=== PATIENT | female | born 1970 | race Caucasian/White ===

== ENCOUNTER → 2020-08-05 13:23 | Outpatient (CLI) | payer OTHER, SELFPAY ==
[2020-08-05] MEDS: COVID-19 VACC, Ad26(JANSSEN)/PF 0.5 ML IM (13:29)
== END ==
PROVIDERS: Visit Provider Internal Medicine
DX: Z23 Encounter for immunization (principal)
CPT/HCPCS: 0031A; 91303

== ENCOUNTER → 2023-08-20 09:36 | Outpatient (CLI) | payer OTHER, SELFPAY ==
[2023-08-20 11:04] LABS: Add Manual Diff / Slide Review NO; Basophils Absolute Auto 0 /uL (0-100); Basophils Percent Auto 0.6 % (0-2); Eosinophils Absolute Auto 200 /uL (0-450); Eosinophils Percent Auto 3.8 % (2-4); Hematocrit 36.4 % (36-46); Hemoglobin 12.2 g/dL (12.0-16.0); Lymphocytes Absolute Auto 1600 /uL (1100-4500); Lymphocytes Percent Auto 38.4 % (25-40); Mean Corpuscular HGB Conc 33.7 % (30-36); Mean Corpuscular Hemoglobin 28.8 PG (26-34); Mean Corpuscular Volume 85.5 fL (80-100); Monocytes Absolute Auto 400 /uL (0-900); Monocytes Percent Auto 10.7 % (3-14); Neutrophils Absolute Auto 1900 /uL (1500-7000); Neutrophils Percent Auto 46.5 % (50-75); Platelet Count 207 X10^3/uL (150-400); Red Blood Cell Count 4.25 X10^6/uL (4.0-5.2); Red Cell Distribution Width 12.2 % (11.6-14.8); White Blood Cell Count 4.2 X10^3/uL (4.5-11.0)
[2023-08-20 11:47] LABS: Alanine Aminotransferase 22 IU/L (<35); Albumin 3.8 g/dL (3.5-5.0); Albumin Globulin Ratio 1.6 (1.0-2.8); Alkaline Phosphatase 57 U/L (38-126); Aspartate Aminotransferase 23 IU/L (14-36); BUN Creatinine Ratio 31.7 (6-22); Bilirubin Total 0.4 mg/dL (0.2-1.3); Blood Urea Nitrogen 13 mg/dL (7-17); Calcium 9.5 mg/dL (8.4-10.2); Carbon Dioxide 27 mmol/L (22-32); Chloride 107 mmol/L (98-107); Cholesterol 169 mg/dL (140-199); Estimated Glomerular Filt Rate > 60 mL/min (>60); Globulin 2.4 g/dL (1.7-4.1); Glucose 113 mg/dL (70-100); HDL Cholesterol 36 mg/dL (40-60); HEMOLYSIS < 15 (0-50); LDL Cholesterol Calculated 101 mg/dL (<100); Potassium 4.3 mmol/L (3.4-5.1); Sodium 139 mmol/L (137-145); Total Protein 6.2 g/dL (6.3-8.2); Triglycerides 160 mg/dL (35-150)
[2023-08-20 12:13] LABS: TSH w/ Reflex to FT4 < 0.02 uIU/mL (0.47-4.68)
[2023-08-20 13:10] LABS: Free T4, Direct Thyroxine 3.14 ng/dL (0.78-2.19)
[2023-08-23 07:36] LABS: Thyroid Peroxidase Antibodies 24 IU/mL (0-34)
== END ==
LOC: LAB 09:39
PROVIDERS: Family Medicine; PCP Student in an Organized Health Care Education/Training Program; Referring Provider Student in an Organized Health Care Education/Training Program; Visit Provider Student in an Organized Health Care Education/Training Program
DX: Z13.29 Encounter for screening for other suspected endocrine disorder (principal); Z13.220 Encounter for screening for lipoid disorders; Z13.0 Encounter for screening for diseases of the blood and blood-forming organs and certain disorders involving the immune mechanism; E66.9 Obesity, unspecified; Z79.899 Other long term (current) drug therapy; Z78.0 Asymptomatic menopausal state
CPT/HCPCS: 36415; 80053; 80061; 84439; 84443; 84481; 85025; 86376

== ENCOUNTER → 2023-09-06 07:33 | Outpatient (CLI) | payer OTHER, SELFPAY ==
--- NOTE | 2023-09-06 07:34 | DI.US.S_ITS ---
PROCEDURE: US THYROID INDICATIONS: new hyperthyroidism, assess for Graves dz TECHNIQUE: Real-time scanning was performed of the thyroid gland, with image documentation. COMPARISON: None. FINDINGS: Thyroid: Right lobe measures 4.1 x 1.6 x 1.6 cm. Left lobe measures 4 x 1.5 x 1.3 cm. Isthmus is 0.2 cm thick. Echotexture is heterogeneous. Vascularity may be somewhat prominent. No significant thyroid nodules. IMPRESSION: Heterogeneous thyroid gland. No significant thyroid nodules. Dictated by: Minesh Arvizu M.D. on 09/06/2023 at 12:40 Approved by: Minesh Arvizu M.D. on 09/06/2023 at 12:42
== END ==
PROVIDERS: PCP Student in an Organized Health Care Education/Training Program; Referring Provider Student in an Organized Health Care Education/Training Program; Visit Provider Student in an Organized Health Care Education/Training Program
DX: E05.90 Thyrotoxicosis, unspecified without thyrotoxic crisis or storm (principal)
CPT/HCPCS: 76536

== ENCOUNTER → 2023-11-16 11:32 | Outpatient (CLI) | payer OTHER, SELFPAY ==
[2023-11-16 15:53] LABS: TSH w/ Reflex to FT4 < 0.02 uIU/mL (0.47-4.68)
[2023-11-16 16:45] LABS: Free T4, Direct Thyroxine 3.04 ng/dL (0.78-2.19)
== END ==
PROVIDERS: PCP Student in an Organized Health Care Education/Training Program; Referring Provider Student in an Organized Health Care Education/Training Program; Visit Provider Student in an Organized Health Care Education/Training Program
DX: E05.90 Thyrotoxicosis, unspecified without thyrotoxic crisis or storm (principal)
CPT/HCPCS: 36415; 84439; 84443; 84481

== ENCOUNTER → 2024-02-15 11:44 | Outpatient (CLI) | payer OTHER, SELFPAY ==
[2024-02-15 12:49] LABS: Influenza A - CEPHEID Flu A NEGATIVE (NEGATIVE); Influenza B - CEPHEID Flu B NEGATIVE (NEGATIVE); Respiratory Syncytial Virus Negative (Negative)
[2024-02-15 13:15] LABS: COVID-19 CEPHEID 4-PLEX PCR Negative (Negative)
== END ==
PROVIDERS: PCP Student in an Organized Health Care Education/Training Program; Visit Provider Nurse Practitioner Family
DX: J02.9 Acute pharyngitis, unspecified (principal)
CPT/HCPCS: 0241U

== ENCOUNTER → 2024-06-10 09:02 | Outpatient (CLI) | payer OTHER, SELFPAY ==
[2024-06-10 10:47] LABS: Free T3, Triiodothyronine Free 4.57 pg/mL (2.77-5.27); Free T4, Direct Thyroxine 1.21 ng/dL (0.78-2.19)
[2024-06-10 11:00] LABS: Thyroid Stimulating Hormone 0.272 uIU/mL (0.47-4.68)
== END ==
PROVIDERS: PCP Student in an Organized Health Care Education/Training Program; Referring Provider Student in an Organized Health Care Education/Training Program; Visit Provider Student in an Organized Health Care Education/Training Program
DX: E05.90 Thyrotoxicosis, unspecified without thyrotoxic crisis or storm (principal)
CPT/HCPCS: 36415; 84439; 84443; 84481

== ENCOUNTER → 2024-09-10 12:20 | Outpatient (CLI) | payer OTHER, SELFPAY ==
--- NOTE | 2024-09-10 12:22 | DI.RAD.S_ITS ---
PROCEDURE: XR CHEST 2V INDICATIONS: fever, cough TECHNIQUE: 2 views of the chest were acquired. COMPARISON: None. FINDINGS: Heart, mediastinum and pulmonary vascular: Heart is normal in size and configuration. Mediastinum is unremarkable. Pulmonary vascular is normal. Lungs: Small patchy infiltrate in the posterior right lower lobe noted Pleural spaces: Normal-no effusions or pneumothorax. Bones and soft tissues: Normal IMPRESSION: Small patchy infiltrate posterior right lower lobe -likely pneumonia Dictated by: Sudhakar Álvarez M.D. on 09/11/2024 at 11:30 Approved by: Sudhakar Álvarez M.D. on 09/11/2024 at 11:30
== END ==
LOC: DI 12:22
PROVIDERS: Family Provider Student in an Organized Health Care Education/Training Program; PCP Student in an Organized Health Care Education/Training Program; Referring Provider Student in an Organized Health Care Education/Training Program; Visit Provider Student in an Organized Health Care Education/Training Program
DX: R05.1 Acute cough (principal); R50.9 Fever, unspecified
CPT/HCPCS: 71046

== ENCOUNTER → 2024-09-24 09:02 | Outpatient (CLI) | payer OTHER, SELFPAY ==
--- NOTE | 2024-09-24 09:07 | DI.RAD.S_ITS ---
PROCEDURE: XR CHEST 2V INDICATIONS: FU post pneumonia TECHNIQUE: 2 views of the chest were acquired. COMPARISON: [facility], CR, XR CHEST 2V, 09/10/2024, 12:31. FINDINGS: Decreased mild bilateral peribronchial thickening and patchy opacities, right greater than left, more than expected for expiratory result. Decreased bronchitis, bronchopneumonia, viral infection, or other process could be considered. No pneumothorax, no pleural effusion, no new areas of consolidation. Cardiopericardial silhouette and pulmonary vasculature within normal limits. IMPRESSION: Improving peribronchial thickening and patchy opacities as discussed above. If symptoms persist or worsen, CT chest could be performed. Dictated by: Larry Stacy M.D. on 09/24/2024 at 12:40 Approved by: Larry Stacy M.D. on 09/24/2024 at 12:50
== END ==
PROVIDERS: Family Provider Student in an Organized Health Care Education/Training Program; PCP Student in an Organized Health Care Education/Training Program; Referring Provider Student in an Organized Health Care Education/Training Program; Visit Provider Student in an Organized Health Care Education/Training Program
DX: J18.9 Pneumonia, unspecified organism (principal)
CPT/HCPCS: 71046

== ENCOUNTER 2024-10-02 08:15 | Outpatient (RCR) | payer OTHER, SELFPAY ==
--- NOTE | 2024-07-17 12:15 | PT.OPPOC ---
Physical, Occupational & Speech Therapy At [facility] Current Diagnoses Pain in right shoulder (07/17/24) Bicipital tendinitis, right shoulder (07/17/24) Visit Care Team Role Provider Type Greta Ibrahmi MD Attending Provider Physician Family Provider Primary Care Provider Referring Provider Specialty: Family Practice Obstetrics Address: [address] [place] [address], [facility] Email: [email or web address] Plan Of Care PT-OP-B Current Condition Start: 07/17/24 13:36 Freq: Status: Active Protocol: Document 07/17/24 11:40 DCW (Rec: 07/18/24 08:43 DCW [id number]) Current Condition History of Current Condition Onset Date Five month history Current Complaints Right anterior shoulder pain History of Current Condition Pt is a 53 year old female presenting with a five month history of right anterior shoulder pain. Pt reports that she was using her Instapot, and reached across the top, burned her hand with steam, and jerked her arm back quickly, which resulted in an immediate sharp pain in her right shoulder. Pain has been fairly consistent over the past few months, notes no limitations in her ROM, but struggles with doing activities like digging while gardening, or lifting a 50# bag of dog food. Notes she is unable to sleep on her right side, which is her typical sleeping position. Has not been able to go to the gym due to pain. Treatment Goals Patient/Caregiver Goals Return to preferred activities like gym and gardening without right shoulder pain PT-OP-T Assessment and Plan Start: 07/17/24 13:36 Freq: Status: Active Protocol: Document 07/17/24 11:40 DCW (Rec: 07/18/24 08:55 DCW [id number]) Physical Therapy Assessment Rehab Potential Rehabilitation Potential Good Evaluation Complexity Number of Personal Factors/Comorbidities 3 or More Number of Body Systems Impaired 4 or More Clinical Presentation at Evaluation Unstable Impairments Impairments Activity Tolerance,Functional Activities,Functional Mobility ,Pain,Soft Tissue Mobility, Tone Goals Three Impairment Pain disturbs pt's normal sleep pattern Power Line Lineman Goal (LTG) Pt to return to prior sleeping position of right side-lying without pain in order to improve sleep performance. LTG Duration 09/16/24 Two Impairment Pt unable to use shovel when gardening Power Line Lineman Goal (LTG) Pt to report ability to garden foe two hours or more without increased right shoulder pain in order to demonstrate return to prior functional levels LTG Duration 09/16/24 One Impairment Pt does not have an appropriate home exercise program Short Term Goal (STG) Pt to be independent and compliant with an appropriate HEP STG Duration 08/17/24 Assessment Summary Assessment Pt presents with signs and symptoms consistent with referring diagnosis. Pt location of pain and aggravating tests today suggestive of likely bicipital tendon involvement. Very point specific pain within bicipital groove. Additionally exhibits some increased tone and tenderness in right infraspinatus. Pt does not have any limitations in ROM currently. Will likely benefit from skilled therapeutic intervention focusing on decreasing pain and inflammation, strengthening the shoulder girdle, improving joint stability, and return to prior level of function. Physical Therapy Plan Frequency and Duration Frequency of Treatment 2x/Week Plan of Care Start Date 07/17/24 Plan of Care End Date 09/16/24 Therapeutic Interventions Therapeutic Interventions Home Exercise Program,Joint Mobilizations,Manual Therapy, Neuromuscular Re-education, Patient/Caregiver Education, Self-Care/Home Management,Soft Tissue Mobilization,Taping, Therapeutic Activities, Therapeutic Exercises Modalities Cold Pack/Ice Massage,Electric Stimulation,Hot Packs, Ultrasound Next Visit Focus/Plan Next Note Type Treatment Note Next Visit Plan Pain control, shoulder strengthening Plan of Care Dates Plan of Care Start Date 07/17/24 Plan of Care End Date 09/16/24 Electronically Signed by: Noah Adrian, PT 07/18/24 0855 If you are in agreement with this Plan of Care, please return a signed and dated copy. I have reviewed this Plan of Care and certify that the skilled therapy services above are required to meet the patient?s needs. Physician Signature Date Printed Name and Credentials Clinical Instructor Signature Printed Name and Credentials
--- NOTE | 2024-07-17 12:15 | PT.OIE ---
Current Diagnoses Pain in right shoulder (07/17/24) Bicipital tendinitis, right shoulder (07/17/24) Past Medical History (Last Reviewed 06/02/24 @ 13:35 by MAYITO Zuniga) ADHD Allergies Chicken pox (~1984) Gestational diabetes (~2009) Hearing loss Hyperthyroidism No significant medical problems Obesity (BMI 30.0-34.9) Prediabetes Vision disorder Past Surgical History (Last Reviewed 06/02/24 @ 13:35 by MAYITO Zuniga) Anesthesia History of section Visit Care Team Role Provider Type Greta Ibrahim MD Attending Provider Physician Family Provider Primary Care Provider Referring Provider Specialty: Family Practice Obstetrics Address: [address] [place] [address], [facility] Email: [email or web address] Physical Therapy Initial Evaluation PT-OP-A Visit Information Start: 07/17/24 13:36 Freq: Status: Active Protocol: Document 07/17/24 11:40 DCW (Rec: 07/17/24 13:43 DCW [id number]) Out-Patient Physical Therapy Visit Information Visit Information Visit Type Initial Evaluation Visit Start Time 11:40 Visit Stop Time 12:15 Visit Number 1 Number of PIN MAKER Visits 0 Evaluation Information Evaluation Date 07/17/24 PT-OP-B Current Condition Start: 07/17/24 13:36 Freq: Status: Active Protocol: Document 07/17/24 11:40 DCW (Rec: 07/18/24 08:43 DCW [id number]) Current Condition History of Current Condition Onset Date Five month history Current Complaints Right anterior shoulder pain History of Current Condition Pt is a 53 year old female presenting with a five month history of right anterior shoulder pain. Pt reports that she was using her Instapot, and reached across the top, burned her hand with steam, and jerked her arm back quickly, which resulted in an immediate sharp pain in her right shoulder. Pain has been fairly consistent over the past few months, notes no limitations in her ROM, but struggles with doing activities like digging while gardening, or lifting a 50# bag of dog food. Notes she is unable to sleep on her right side, which is her typical sleeping position. Has not been able to go to the gym due to pain. Treatment Goals Patient/Caregiver Goals Return to preferred activities like gym and gardening without right shoulder pain PT-OP-C Subjective Start: 07/17/24 13:36 Freq: Status: Active Protocol: Document 07/17/24 11:40 DCW (Rec: 07/17/24 13:43 DCW [id number]) OP-PT Subjective Patient Comments Patient Comments I somehow hurt my shoulder using an Instapot. It's ridiculous. Patient Reported Progress Same Patient Questionnaires Quick Dash- Upper Extremity Quick Dash UE Score 43.18% Quick Dash UE Impairment 40 to 59% Impaired (Score 40- 59) PT-OP-F Manual Assessment Start: 07/17/24 13:36 Freq: Status: Active Protocol: Document 07/17/24 11:40 DCW (Rec: 07/18/24 08:43 DCW [id number]) Manual Assessments Soft Tissue Assessment Soft Tissue Mobility Assessment Tenderness to palpation 3/4: wincing and withdraw along right bicipital groove. Tenderness to palpation 2/4: Pain with wincing at right infraspinatus muscle belly Joint Mobility Assessment Joint Mobility Assessment No limitations of joint or capsular mobility of right shoulder PT-OP-K Range of Motion Start: 07/17/24 13:36 Freq: Status: Active Protocol: Document 07/17/24 11:40 DCW (Rec: 07/18/24 08:43 DCW [id number]) Shoulder Goniometric Range of Motion Shoulder Right Active Shoulder ROM WFL Yes Testing Position Sitting Flexion 180 Abduction 180 External Rotation at 0 degrees Abduction 65 Internal Rotation Behind Back (text) T10 Left Active Shoulder ROM WFL Yes Testing Position Sitting Flexion 180 Abduction 180 External Rotation at 0 degrees Abduction 70 Internal Rotation Behind Back (text) T6 PT-OP-L Special Tests Start: 07/17/24 13:36 Freq: Status: Active Protocol: Document 07/17/24 11:40 DCW (Rec: 07/18/24 08:43 DCW [id number]) Special Tests Shoulder Special Tests Yergason's Biceps Test Results Strongly positive right Sulcus Test Results Negative Speed's Biceps Test Results Strongly positive right Passive ER Rotator Cuff Test Results Negative Painful Arc Test Results Negative Montelongo Josué Impingement Test Results Negative Grind Labrum Test Results Negative Drop Arm Rotator Cuff Test Results Negative Clunk Test Test Results Negative Belly Press Test Results Mild R pain Apprehension Test Test Results Negative AC Joint Compression Test Results Negative PT-OP-M Strength Start: 07/17/24 13:36 Freq: Status: Active Protocol: Document 07/17/24 11:40 DCW (Rec: 07/18/24 08:43 DCW [id number]) Shoulder Strength Shoulder Manual Muscle Testing Right Flexion 5 Normal Abduction (C5) 5 Normal Adduction 5 Normal External Rotation 5 Normal Internal Rotation 5 Normal Comments Pain with resisted ER Left Flexion 5 Normal Abduction (C5) 5 Normal Adduction 5 Normal External Rotation 5 Normal Internal Rotation 5 Normal PT-OP-Q Treatments Start: 07/17/24 13:36 Freq: Status: Active Protocol: Document 07/17/24 11:40 DCW (Rec: 07/17/24 13:43 DCW [id number]) Therapeutic Exercises Standing Exercises Shoulder Abduction Standing Exercise Name Shoulder Abduction Side bilateral Resistance Lv 2 Comments Pain-free ROM Shoulder Flexion Standing Exercise Name Shoulder Flexion Side bilateral Resistance Lv 2 Comments Pain-free ROM Rows Standing Exercise Name Rows Side bilateral Resistance Lv 2 External Rotation Standing Exercise Name Shoulder ER Side bilateral Resistance Lv 2 PT-OP-T Assessment and Plan Start: 07/17/24 13:36 Freq: Status: Active Protocol: Document 07/17/24 11:40 DCW (Rec: 07/18/24 08:55 DCW [id number]) Physical Therapy Assessment Rehab Potential Rehabilitation Potential Good Evaluation Complexity Number of Personal Factors/Comorbidities 3 or More Number of Body Systems Impaired 4 or More Clinical Presentation at Evaluation Unstable Impairments Impairments Activity Tolerance,Functional Activities,Functional Mobility ,Pain,Soft Tissue Mobility, Tone Goals Three Impairment Pain disturbs pt's normal sleep pattern Production Team Leader Goal (LTG) Pt to return to prior sleeping position of right side-lying without pain in order to improve sleep performance. LTG Duration 09/16/24 Two Impairment Pt unable to use shovel when gardening Alf Goal (LTG) Pt to report ability to garden foe two hours or more without increased right shoulder pain in order to demonstrate return to prior functional levels LTG Duration 09/16/24 One Impairment Pt does not have an appropriate home exercise program Short Term Goal (STG) Pt to be independent and compliant with an appropriate HEP STG Duration 08/17/24 Assessment Summary Assessment Pt presents with signs and symptoms consistent with referring diagnosis. Pt location of pain and aggravating tests today suggestive of likely bicipital tendon involvement. Very point specific pain within bicipital groove. Additionally exhibits some increased tone and tenderness in right infraspinatus. Pt does not have any limitations in ROM currently. Will likely benefit from skilled therapeutic intervention focusing on decreasing pain and inflammation, strengthening the shoulder girdle, improving joint stability, and return to prior level of function. Physical Therapy Plan Frequency and Duration Frequency of Treatment 2x/Week Plan of Care Start Date 07/17/24 Plan of Care End Date 09/16/24 Therapeutic Interventions Therapeutic Interventions Home Exercise Program,Joint Mobilizations,Manual Therapy, Neuromuscular Re-education, Patient/Caregiver Education, Self-Care/Home Management,Soft Tissue Mobilization,Taping, Therapeutic Activities, Therapeutic Exercises Modalities Cold Pack/Ice Massage,Electric Stimulation,Hot Packs, Ultrasound Next Visit Focus/Plan Next Note Type Treatment Note Next Visit Plan Pain control, shoulder strengthening
--- NOTE | 2024-07-22 09:43 | PT.OTN ---
Current Diagnoses Pain in right shoulder (07/22/24) Bicipital tendinitis, right shoulder (07/22/24) Physical Therapy Treatment Note PT-OP-A Visit Information Start: 07/17/24 13:36 Freq: Status: Active Protocol: Document 07/22/24 09:05 SP (Rec: 07/22/24 09:50 SP [id number]) Out-Patient Physical Therapy Visit Information Visit Information Visit Type Initial Evaluation Visit Start Time 09:05 Visit Stop Time 09:43 Visit Number 2 Number of GREASE REMOVER Visits 1 Evaluation Information Evaluation Date 07/17/24 PT-OP-B Current Condition Start: 07/17/24 13:36 Freq: Status: Active Protocol: Document 07/17/24 11:40 DCW (Rec: 07/18/24 08:43 DCW [id number]) Current Condition History of Current Condition Onset Date Five month history Current Complaints Right anterior shoulder pain History of Current Condition Pt is a 53 year old female presenting with a five month history of right anterior shoulder pain. Pt reports that she was using her Instapot, and reached across the top, burned her hand with steam, and jerked her arm back quickly, which resulted in an immediate sharp pain in her right shoulder. Pain has been fairly consistent over the past few months, notes no limitations in her ROM, but struggles with doing activities like digging while gardening, or lifting a 50# bag of dog food. Notes she is unable to sleep on her right side, which is her typical sleeping position. Has not been able to go to the gym due to pain. Treatment Goals Patient/Caregiver Goals Return to preferred activities like gym and gardening without right shoulder pain PT-OP-C Subjective Start: 07/17/24 13:36 Freq: Status: Active Protocol: Document 07/22/24 09:05 SP (Rec: 07/22/24 09:50 SP [id number]) OP-PT Subjective Patient Comments Patient Comments Pt reports was pretty sore after last tx, she found 2 days per week might be to much right now. Is compliant with HEP daily, resisted band is bothersome though but does her HEP. PT-OP-F Manual Assessment Start: 07/17/24 13:36 Freq: Status: Active Protocol: Document 07/17/24 11:40 DCW (Rec: 07/18/24 08:43 DCW [id number]) Manual Assessments Soft Tissue Assessment Soft Tissue Mobility Assessment Tenderness to palpation 3/4: wincing and withdraw along right bicipital groove. Tenderness to palpation 2/4: Pain with wincing at right infraspinatus muscle belly Joint Mobility Assessment Joint Mobility Assessment No limitations of joint or capsular mobility of right shoulder PT-OP-K Range of Motion Start: 07/17/24 13:36 Freq: Status: Active Protocol: Document 07/17/24 11:40 DCW (Rec: 07/18/24 08:43 DCW [id number]) Shoulder Goniometric Range of Motion Shoulder Right Active Shoulder ROM WFL Yes Testing Position Sitting Flexion 180 Abduction 180 External Rotation at 0 degrees Abduction 65 Internal Rotation Behind Back (text) T10 Left Active Shoulder ROM WFL Yes Testing Position Sitting Flexion 180 Abduction 180 External Rotation at 0 degrees Abduction 70 Internal Rotation Behind Back (text) T6 PT-OP-L Special Tests Start: 07/17/24 13:36 Freq: Status: Active Protocol: Document 07/17/24 11:40 DCW (Rec: 07/18/24 08:43 DCW [id number]) Special Tests Shoulder Special Tests Yergason's Biceps Test Results Strongly positive right Sulcus Test Results Negative Speed's Biceps Test Results Strongly positive right Passive ER Rotator Cuff Test Results Negative Painful Arc Test Results Negative Montelongo Josué Impingement Test Results Negative Grind Labrum Test Results Negative Drop Arm Rotator Cuff Test Results Negative Clunk Test Test Results Negative Belly Press Test Results Mild R pain Apprehension Test Test Results Negative AC Joint Compression Test Results Negative PT-OP-M Strength Start: 07/17/24 13:36 Freq: Status: Active Protocol: Document 07/17/24 11:40 DCW (Rec: 07/18/24 08:43 DCW [id number]) Shoulder Strength Shoulder Manual Muscle Testing Right Flexion 5 Normal Abduction (C5) 5 Normal Adduction 5 Normal External Rotation 5 Normal Internal Rotation 5 Normal Comments Pain with resisted ER Left Flexion 5 Normal Abduction (C5) 5 Normal Adduction 5 Normal External Rotation 5 Normal Internal Rotation 5 Normal PT-OP-Q Treatments Start: 07/17/24 13:36 Freq: Status: Active Protocol: Document 07/22/24 09:05 SP (Rec: 07/22/24 09:50 SP [id number]) Therapeutic Exercises Supine Exercises serratus press Supine Exercise Name added to HEP /c HO Side right Resistance AROM Reps/Minutes 2x5 reps Comments cues slow motion, scapular glide Sidelying Exercises ER Sidelying Exercise Name added toHEP with HO Side right Resistance AROM Reps/Minutes x8 reps Abduction Sidelying Exercise Name added to HEP with HO Side right Reps/Minutes x8 reps Comments to approx 100 deg pnfree range Standing Exercises Shoulder Abduction Standing Exercise Name Shoulder Abduction Side bilateral Resistance Lv 2> 1# DB Reps/Minutes 2x5 Comments modified using 1# DB less discomfort and better mechanics Shoulder Flexion Standing Exercise Name Shoulder Flexion Side bilateral Resistance Lv 2> 1# DB Reps/Minutes 2x5 Comments modified using 1# DB less discomfort and better mechanics Rows Standing Exercise Name Rows Side bilateral Resistance Lv 2 Reps/Minutes x10 Comments cued posture, scap retraction/ depression awareness range Manual Therapy Treatment Soft Tissue Mobilization L shoulder Body Location prox bicep, anterior deltoid, Prox pec, Mobilization Type Myofascial Release,Rolling Intensity/Depth Superficial Body Position Hooklying Comments gentle STMs Joint Mobilizations L shld Joint GH jt Direction posterior, inferior Grade II Body Position Hooklying Manual Techniques PROM L shld Type FF, ER/IR, protraction PT-OP-T Assessment and Plan Start: 07/17/24 13:36 Freq: Status: Active Protocol: Document 07/22/24 09:05 SP (Rec: 07/22/24 09:50 SP [id number]) Physical Therapy Assessment Goals Three Impairment Pain disturbs pt's normal sleep pattern Shelter Goal (LTG) Pt to return to prior sleeping position of right side-lying without pain in order to improve sleep performance. LTG Duration 09/16/24 Two Impairment Pt unable to use shovel when gardening Shelter Goal (LTG) Pt to report ability to garden foe two hours or more without increased right shoulder pain in order to demonstrate return to prior functional levels LTG Duration 09/16/24 One Impairment Pt does not have an appropriate home exercise program Short Term Goal (STG) Pt to be independent and compliant with an appropriate HEP STG Duration 08/17/24 Assessment Summary Assessment Pt sensitive to manual, adjusted pression over anterior R shld. She tolerated SL and supine cues for slow gentle painfree AROM. Modified resisted HEP to use 1 # db during FF and ABD standing due to noted 5/10 pain and guarding during tx today. Pt reports improved motion with less pain end tx, provided HOs for recall home. Pt declined Modaliity, uses CP home. Physical Therapy Plan Frequency and Duration Frequency of Treatment 2x/Week Plan of Care Start Date 07/17/24 Plan of Care End Date 09/16/24 Therapeutic Interventions Therapeutic Interventions Home Exercise Program,Joint Mobilizations,Manual Therapy, Neuromuscular Re-education, Patient/Caregiver Education, Self-Care/Home Management,Soft Tissue Mobilization,Taping, Therapeutic Activities, Therapeutic Exercises Modalities Cold Pack/Ice Massage,Electric Stimulation,Hot Packs, Ultrasound Next Visit Focus/Plan Next Note Type Treatment Note Next Visit Plan Recheck serratus press, SL ER & ABD then tolerance TB HEP standing. POC: Pain control, shoulder strengthening
--- NOTE | 2024-08-05 10:27 | PT.OTN ---
Current Diagnoses Pain in right shoulder (08/05/24) Bicipital tendinitis, right shoulder (08/05/24) Physical Therapy Treatment Note PT-OP-A Visit Information Start: 07/17/24 13:36 Freq: Status: Active Protocol: Document 08/05/24 09:45 DCW (Rec: 08/05/24 10:27 DCW [id number]) Out-Patient Physical Therapy Visit Information Visit Information Visit Type Treatment Note Visit Start Time 09:45 Visit Stop Time 10:30 Visit Number 3 Number of INDIVIDUAL PENSION ADVISER Visits 0 Evaluation Information Evaluation Date 07/17/24 PT-OP-B Current Condition Start: 07/17/24 13:36 Freq: Status: Active Protocol: Document 07/17/24 11:40 DCW (Rec: 07/18/24 08:43 DCW [id number]) Current Condition History of Current Condition Onset Date Five month history Current Complaints Right anterior shoulder pain History of Current Condition Pt is a 53 year old female presenting with a five month history of right anterior shoulder pain. Pt reports that she was using her Instapot, and reached across the top, burned her hand with steam, and jerked her arm back quickly, which resulted in an immediate sharp pain in her right shoulder. Pain has been fairly consistent over the past few months, notes no limitations in her ROM, but struggles with doing activities like digging while gardening, or lifting a 50# bag of dog food. Notes she is unable to sleep on her right side, which is her typical sleeping position. Has not been able to go to the gym due to pain. Treatment Goals Patient/Caregiver Goals Return to preferred activities like gym and gardening without right shoulder pain PT-OP-C Subjective Start: 07/17/24 13:36 Freq: Status: Active Protocol: Document 08/05/24 09:45 DCW (Rec: 08/05/24 10:27 DCW [id number]) OP-PT Subjective Patient Comments Patient Comments Pt admits her shoulder is a little sore. Admits it was feeling a little better, but then did a lot of gardening, and probably overdid it. PT-OP-F Manual Assessment Start: 07/17/24 13:36 Freq: Status: Active Protocol: Document 07/17/24 11:40 DCW (Rec: 07/18/24 08:43 DCW [id number]) Manual Assessments Soft Tissue Assessment Soft Tissue Mobility Assessment Tenderness to palpation 3/4: wincing and withdraw along right bicipital groove. Tenderness to palpation 2/4: Pain with wincing at right infraspinatus muscle belly Joint Mobility Assessment Joint Mobility Assessment No limitations of joint or capsular mobility of right shoulder PT-OP-K Range of Motion Start: 07/17/24 13:36 Freq: Status: Active Protocol: Document 07/17/24 11:40 DCW (Rec: 07/18/24 08:43 DCW [id number]) Shoulder Goniometric Range of Motion Shoulder Right Active Shoulder ROM WFL Yes Testing Position Sitting Flexion 180 Abduction 180 External Rotation at 0 degrees Abduction 65 Internal Rotation Behind Back (text) T10 Left Active Shoulder ROM WFL Yes Testing Position Sitting Flexion 180 Abduction 180 External Rotation at 0 degrees Abduction 70 Internal Rotation Behind Back (text) T6 PT-OP-L Special Tests Start: 07/17/24 13:36 Freq: Status: Active Protocol: Document 07/17/24 11:40 DCW (Rec: 07/18/24 08:43 DCW [id number]) Special Tests Shoulder Special Tests Yergason's Biceps Test Results Strongly positive right Sulcus Test Results Negative Speed's Biceps Test Results Strongly positive right Passive ER Rotator Cuff Test Results Negative Painful Arc Test Results Negative [place] Josué Impingement Test Results Negative Grind Labrum Test Results Negative Drop Arm Rotator Cuff Test Results Negative Clunk Test Test Results Negative Belly Press Test Results Mild R pain Apprehension Test Test Results Negative AC Joint Compression Test Results Negative PT-OP-M Strength Start: 07/17/24 13:36 Freq: Status: Active Protocol: Document 07/17/24 11:40 DCW (Rec: 07/18/24 08:43 DCW [id number]) Shoulder Strength Shoulder Manual Muscle Testing Right Flexion 5 Normal Abduction (C5) 5 Normal Adduction 5 Normal External Rotation 5 Normal Internal Rotation 5 Normal Comments Pain with resisted ER Left Flexion 5 Normal Abduction (C5) 5 Normal Adduction 5 Normal External Rotation 5 Normal Internal Rotation 5 Normal PT-OP-Q Treatments Start: 07/17/24 13:36 Freq: Status: Active Protocol: Document 08/05/24 09:45 DCW (Rec: 08/05/24 10:27 DCW [id number]) Cardio Equipment Upper Body Ergometer (UBE) Duration (Minutes) 5 RPM 60 Seat Position 10 Height 3 Therapeutic Exercises Standing Exercises Curls Standing Exercise Name Reverse Curls Side bilateral Resistance 2# Reps/Minutes 2x10 Shoulder Abduction Standing Exercise Name Shoulder Abduction Side bilateral Resistance Lv 4 Reps/Minutes 2x10 Comments Pain-free ROM Shoulder Flexion Standing Exercise Name Shoulder Flexion Side bilateral Resistance Lv 4 Reps/Minutes 2x10 Comments Pain-free ROM External Rotation Standing Exercise Name Shoulder ER Side bilateral Resistance Lv 4 Manual Therapy Treatment Soft Tissue Mobilization L shoulder Body Location prox bicep, anterior deltoid, Prox pec, supra/infraspinatus, teres minor Mobilization Type Myofascial Release,Rolling Intensity/Depth Superficial Body Position Hooklying Comments gentle STMs Joint Mobilizations L shld Joint GH jt Direction posterior, inferior Grade II Body Position Hooklying PT-OP-T Assessment and Plan Start: 07/17/24 13:36 Freq: Status: Active Protocol: Document 08/05/24 09:45 DCW (Rec: 08/05/24 10:27 DCW [id number]) Physical Therapy Assessment Impairments Impairments Activity Tolerance,Functional Activities,Functional Mobility ,Pain,Soft Tissue Mobility, Tone Goals Three Impairment Pain disturbs pt's normal sleep pattern Fdc Goal (LTG) Pt to return to prior sleeping position of right side-lying without pain in order to improve sleep performance. LTG Duration 09/16/24 Two Impairment Pt unable to use shovel when gardening Administrative Services Assistant Goal (LTG) Pt to report ability to garden foe two hours or more without increased right shoulder pain in order to demonstrate return to prior functional levels LTG Duration 09/16/24 One Impairment Pt does not have an appropriate home exercise program Short Term Goal (STG) Pt to be independent and compliant with an appropriate HEP STG Duration 08/17/24 Assessment Summary Assessment Pt tolerating STM much better today, admitted her shoulder felt much better following manual therapy last visit. Adjusted HEP, pt not comfortable with supine or side-lying exercise, preferred to return to standing HEP with T-band. Physical Therapy Plan Frequency and Duration Frequency of Treatment 2x/Week Plan of Care Start Date 07/17/24 Plan of Care End Date 09/16/24 Therapeutic Interventions Therapeutic Interventions Home Exercise Program,Joint Mobilizations,Manual Therapy, Neuromuscular Re-education, Patient/Caregiver Education, Self-Care/Home Management,Soft Tissue Mobilization,Taping, Therapeutic Activities, Therapeutic Exercises Modalities Cold Pack/Ice Massage,Electric Stimulation,Hot Packs, Ultrasound Next Visit Focus/Plan Next Note Type Treatment Note Next Visit Plan Recheck serratus press, SL ER & ABD then tolerance TB HEP standing. POC: Pain control, shoulder strengthening
--- NOTE | 2024-08-12 10:35 | PT.OTN ---
Current Diagnoses Pain in right shoulder (08/12/24) Bicipital tendinitis, right shoulder (08/12/24) Physical Therapy Treatment Note PT-OP-A Visit Information Start: 07/17/24 13:36 Freq: Status: Active Protocol: Document 08/12/24 09:52 SP (Rec: 08/12/24 10:46 SP Laptop) Out-Patient Physical Therapy Visit Information Visit Information Visit Type Treatment Note Visit Note CRUZ Mosocso assisted with most ther ex instruction to pt throughout tx while under direction supervision and instruction needed by PHILOMENA Goins with permission of pt. Visit Start Time 09:52 Visit Stop Time 10:35 Visit Number 4 Number of PRINCIPAL BIOINFORMATICS SPECIALIST Visits 1 PT-OP-B Current Condition Start: 07/17/24 13:36 Freq: Status: Active Protocol: Document 07/17/24 11:40 DCW (Rec: 07/18/24 08:43 DCW [id number]) Current Condition History of Current Condition Onset Date Five month history Current Complaints Right anterior shoulder pain History of Current Condition Pt is a 53 year old female presenting with a five month history of right anterior shoulder pain. Pt reports that she was using her Instapot, and reached across the top, burned her hand with steam, and jerked her arm back quickly, which resulted in an immediate sharp pain in her right shoulder. Pain has been fairly consistent over the past few months, notes no limitations in her ROM, but struggles with doing activities like digging while gardening, or lifting a 50# bag of dog food. Notes she is unable to sleep on her right side, which is her typical sleeping position. Has not been able to go to the gym due to pain. Treatment Goals Patient/Caregiver Goals Return to preferred activities like gym and gardening without right shoulder pain PT-OP-C Subjective Start: 07/17/24 13:36 Freq: Status: Active Protocol: Document 08/12/24 09:52 SP (Rec: 08/12/24 10:46 SP Laptop) OP-PT Subjective Patient Comments Patient Comments Pt reports she felt sore after the last treatment session. She stated has dogs home and then get in way if on floor and laying in bed is to soft so not going to do laying down HEP, states prefers to learn standing activity. She did some yard work last week putting out wood chips, planting small bushes and R shld hurt but needed to get done. PT-OP-F Manual Assessment Start: 07/17/24 13:36 Freq: Status: Active Protocol: Document 07/17/24 11:40 DCW (Rec: 07/18/24 08:43 DCW [id number]) Manual Assessments Soft Tissue Assessment Soft Tissue Mobility Assessment Tenderness to palpation 3/4: wincing and withdraw along right bicipital groove. Tenderness to palpation 2/4: Pain with wincing at right infraspinatus muscle belly Joint Mobility Assessment Joint Mobility Assessment No limitations of joint or capsular mobility of right shoulder PT-OP-K Range of Motion Start: 07/17/24 13:36 Freq: Status: Active Protocol: Document 07/17/24 11:40 DCW (Rec: 07/18/24 08:43 DCW [id number]) Shoulder Goniometric Range of Motion Shoulder Right Active Shoulder ROM WFL Yes Testing Position Sitting Flexion 180 Abduction 180 External Rotation at 0 degrees Abduction 65 Internal Rotation Behind Back (text) T10 Left Active Shoulder ROM WFL Yes Testing Position Sitting Flexion 180 Abduction 180 External Rotation at 0 degrees Abduction 70 Internal Rotation Behind Back (text) T6 PT-OP-L Special Tests Start: 07/17/24 13:36 Freq: Status: Active Protocol: Document 07/17/24 11:40 DCW (Rec: 07/18/24 08:43 DCW [id number]) Special Tests Shoulder Special Tests Yergason's Biceps Test Results Strongly positive right Sulcus Test Results Negative Speed's Biceps Test Results Strongly positive right Passive ER Rotator Cuff Test Results Negative Painful Arc Test Results Negative [place] Josué Impingement Test Results Negative Grind Labrum Test Results Negative Drop Arm Rotator Cuff Test Results Negative Clunk Test Test Results Negative Belly Press Test Results Mild R pain Apprehension Test Test Results Negative AC Joint Compression Test Results Negative PT-OP-M Strength Start: 07/17/24 13:36 Freq: Status: Active Protocol: Document 07/17/24 11:40 DCW (Rec: 07/18/24 08:43 DCW [id number]) Shoulder Strength Shoulder Manual Muscle Testing Right Flexion 5 Normal Abduction (C5) 5 Normal Adduction 5 Normal External Rotation 5 Normal Internal Rotation 5 Normal Comments Pain with resisted ER Left Flexion 5 Normal Abduction (C5) 5 Normal Adduction 5 Normal External Rotation 5 Normal Internal Rotation 5 Normal PT-OP-Q Treatments Start: 07/17/24 13:36 Freq: Status: Active Protocol: Document 08/12/24 09:52 SP (Rec: 08/12/24 10:46 SP Laptop) Cardio Equipment Upper Body Ergometer (UBE) Duration (Minutes) 4 RPM 120 Seat Position 10 Height 2 Other forward/backward alternated 30 seconds Therapeutic Exercises Supine Exercises serratus press Supine Exercise Name reports supine HEP not condusive to with dogs home DC Comments prefers standing Standing Exercises Curls Standing Exercise Name Reverse Curls (bicep curl in pronation) Side bilateral Resistance 2# DB Reps/Minutes 2x10 Shoulder Abduction Standing Exercise Name Shoulder Abduction Side bilateral Resistance Lv 4>3 anchored under foot Reps/Minutes 2x10 Comments Pain-free ROM, irritation with Lv 4, improved Lv 3, cues elbow straight Shoulder Flexion Standing Exercise Name Shoulder Flexion Side bilateral Resistance Lv 4>3 anchored under foot Reps/Minutes 2x10 Comments Pain-free ROM, irritation with Lv 4, improved Lv 3, cues elbow straight Rows Standing Exercise Name Rows Side bilateral Resistance Lv 2>3 [place] Reps/Minutes x10 Comments cued posture, scap retraction/ depression awareness range External Rotation Standing Exercise Name Shoulder ER Side bilateral Resistance Lv 4>3 [place] Reps/Minutes x10 Comments cued rhomboid fac con/slower ecc Manual Therapy Treatment Consent Patient gave verbal consent for manual Yes treatment Soft Tissue Mobilization L shoulder Body Location prox bicep, anterior deltoid, Prox pec, supra/infraspinatus, teres minor Mobilization Type Myofascial Release,Rolling Intensity/Depth Superficial Body Position Hooklying Comments gentle STMs Self-Care/Home Management Treatment Education Patient Education Body Mechanics,Joint Protection,Pain Management, Posture Other Education Some time spent trying to educate use of pillow supine, SL and pt states would be to hot and her pillow front of arms SL and only under her head works for her but at times had put pillow under R shld but causes pain so stopped. Provided increase dTB #3 [place] for progress strengthen in PT. PT-OP-T Assessment and Plan Start: 07/17/24 13:36 Freq: Status: Active Protocol: Document 08/12/24 09:52 SP (Rec: 08/12/24 10:46 SP Laptop) Physical Therapy Assessment Goals Three Impairment Pain disturbs pt's normal sleep pattern Sorting Grapple Operator Goal (LTG) Pt to return to prior sleeping position of right side-lying without pain in order to improve sleep performance. LTG Duration 09/16/24 Two Impairment Pt unable to use shovel when gardening Sorting Grapple Operator Goal (LTG) Pt to report ability to garden foe two hours or more without increased right shoulder pain in order to demonstrate return to prior functional levels LTG Duration 09/16/24 One Impairment Pt does not have an appropriate home exercise program Short Term Goal (STG) Pt to be independent and compliant with an appropriate HEP STG Duration 08/17/24 Assessment Summary Assessment Pt tolerated increased resistance of L3 for current shld strengthen HEP, reduction from L4 used in previous tx due to potential cause of her pain after end last tx, tolerated resistance well, cues forpotural alignment during HEP. Pt was given multiple options for pillow support for comfort supine and SL with reports what she performs is workign and wanting trial new options. Physical Therapy Plan Frequency and Duration Frequency of Treatment 2x/Week Plan of Care Start Date 07/17/24 Plan of Care End Date 09/16/24 Therapeutic Interventions Therapeutic Interventions Home Exercise Program,Joint Mobilizations,Manual Therapy, Neuromuscular Re-education, Patient/Caregiver Education, Self-Care/Home Management,Soft Tissue Mobilization,Taping, Therapeutic Activities, Therapeutic Exercises Modalities Cold Pack/Ice Massage,Electric Stimulation,Hot Packs, Ultrasound Next Visit Focus/Plan Next Note Type Treatment Note Next Visit Plan Recheck HEP standing, resistant to layign down HEP. Add manual next to support mobility. POC: Pain control, shoulder strengthening
--- NOTE | 2024-08-28 09:00 | PT.OTN ---
Current Diagnoses Pain in right shoulder (08/28/24) Bicipital tendinitis, right shoulder (08/28/24) Physical Therapy Treatment Note PT-OP-A Visit Information Start: 07/17/24 13:36 Freq: Status: Active Protocol: Document 08/28/24 08:54 KW (Rec: 08/28/24 09:00 KW Laptop) Out-Patient Physical Therapy Visit Information Visit Information Visit Type Treatment Note Visit Start Time 08:15 Visit Stop Time 09:00 Visit Number 4 Number of RUN LEAD Visits 1 PT-OP-B Current Condition Start: 07/17/24 13:36 Freq: Status: Active Protocol: Document 07/17/24 11:40 DCW (Rec: 07/18/24 08:43 DCW [id number]) Current Condition History of Current Condition Onset Date Five month history Current Complaints Right anterior shoulder pain History of Current Condition Pt is a 53 year old female presenting with a five month history of right anterior shoulder pain. Pt reports that she was using her Instapot, and reached across the top, burned her hand with steam, and jerked her arm back quickly, which resulted in an immediate sharp pain in her right shoulder. Pain has been fairly consistent over the past few months, notes no limitations in her ROM, but struggles with doing activities like digging while gardening, or lifting a 50# bag of dog food. Notes she is unable to sleep on her right side, which is her typical sleeping position. Has not been able to go to the gym due to pain. Treatment Goals Patient/Caregiver Goals Return to preferred activities like gym and gardening without right shoulder pain PT-OP-C Subjective Start: 07/17/24 13:36 Freq: Status: Active Protocol: Document 08/28/24 08:54 KW (Rec: 08/28/24 09:00 KW Laptop) OP-PT Subjective Patient Comments Patient Comments didn't sleep well. Mind was racing re: brother's suicide past October. 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 Tenderness to palpation 2/4: Pain with wincing at right infraspinatus muscle belly Joint Mobility Assessment Joint Mobility Assessment No limitations of joint or capsular mobility of right shoulder PT-OP-K Range of Motion Start: 07/17/24 13:36 Freq: Status: Active Protocol: Document 07/17/24 11:40 DCW (Rec: 07/18/24 08:43 DCW [id number]) Shoulder Goniometric Range of Motion Shoulder Right Active Shoulder ROM WFL Yes Testing Position Sitting Flexion 180 Abduction 180 External Rotation at 0 degrees Abduction 65 Internal Rotation Behind Back (text) T10 Left Active Shoulder ROM WFL Yes Testing Position Sitting Flexion 180 Abduction 180 External Rotation at 0 degrees Abduction 70 Internal Rotation Behind Back (text) T6 PT-OP-L Special Tests Start: 07/17/24 13:36 Freq: Status: Active Protocol: Document 07/17/24 11:40 DCW (Rec: 07/18/24 08:43 DCW [id number]) Special Tests Shoulder Special Tests Yergason's Biceps Test Results Strongly positive right Sulcus Test Results Negative Speed's Biceps Test Results Strongly positive right Passive ER Rotator Cuff Test Results Negative Painful Arc Test Results Negative [place] Josué Impingement Test Results Negative Grind Labrum Test Results Negative Drop Arm Rotator Cuff Test Results Negative Clunk Test Test Results Negative Belly Press Test Results Mild R pain Apprehension Test Test Results Negative AC Joint Compression Test Results Negative PT-OP-M Strength Start: 07/17/24 13:36 Freq: Status: Active Protocol: Document 07/17/24 11:40 DCW (Rec: 07/18/24 08:43 DCW [id number]) Shoulder Strength Shoulder Manual Muscle Testing Right Flexion 5 Normal Abduction (C5) 5 Normal Adduction 5 Normal External Rotation 5 Normal Internal Rotation 5 Normal Comments Pain with resisted ER Left Flexion 5 Normal Abduction (C5) 5 Normal Adduction 5 Normal External Rotation 5 Normal Internal Rotation 5 Normal PT-OP-Q Treatments Start: 07/17/24 13:36 Freq: Status: Active Protocol: Document 08/28/24 08:54 KW (Rec: 08/28/24 09:00 KW Laptop) Therapeutic Exercises Standing Exercises Curls Standing Exercise Name Reverse Curls (bicep curl in pronation) Side bilateral Resistance 2# DB Reps/Minutes 2x10 Shoulder Abduction Standing Exercise Name Shoulder Abduction Side bilateral Resistance Lv 4>3 anchored under foot Reps/Minutes 2x10 Comments Pain-free ROM, irritation with Lv 4, improved Lv 3, cues elbow straight Shoulder Flexion Standing Exercise Name Shoulder Flexion Side bilateral Resistance Lv 4>3 anchored under foot Reps/Minutes 2x10 Comments Pain-free ROM, irritation with Lv 4, improved Lv 3, cues elbow straight Rows Standing Exercise Name Rows Side bilateral Resistance Lv 2>3 [place] Reps/Minutes x10 Comments cued posture, scap retraction/ depression awareness range External Rotation Standing Exercise Name Shoulder ER Side bilateral Resistance Lv 4>3 [place] Reps/Minutes x10 Comments cued rhomboid fac con/slower ecc Manual Therapy Treatment Soft Tissue Mobilization L shoulder Body Location prox bicep, anterior deltoid, Prox pec, supra/infraspinatus, teres minor Mobilization Type Myofascial Release,Rolling Intensity/Depth Superficial Body Position Hooklying Comments gentle STMs Joint Mobilizations L shld Joint GH jt Direction posterior, inferior Grade II Body Position Hooklying Comments general cervical traction, upper rib mobs, AC/SC joint mobs R Scap mobs in sidelying PT-OP-T Assessment and Plan Start: 07/17/24 13:36 Freq: Status: Active Protocol: Document 08/28/24 08:54 KW (Rec: 08/28/24 09:00 KW Laptop) Physical Therapy Plan Frequency and Duration Frequency of Treatment 2x/Week Plan of Care Start Date 07/17/24 Plan of Care End Date 09/16/24 Therapeutic Interventions Therapeutic Interventions Home Exercise Program,Joint Mobilizations,Manual Therapy, Neuromuscular Re-education, Patient/Caregiver Education, Self-Care/Home Management,Soft Tissue Mobilization,Taping, Therapeutic Activities, Therapeutic Exercises Modalities Cold Pack/Ice Massage,Electric Stimulation,Hot Packs, Ultrasound Next Visit Focus/Plan Next Note Type Treatment Note Next Visit Plan Recheck HEP standing, resistant to layign down HEP. Continue manual next to support mobility. LOTS of cues for ribcage alignment over pelvis, watch knee hyperextension, anterior tilt of pelvis POC: Pain control, shoulder strengthening
--- NOTE | 2024-09-03 10:35 | PT.OTN ---
Current Diagnoses Pain in right shoulder (09/03/24) Bicipital tendinitis, right shoulder (09/03/24) Physical Therapy Treatment Note PT-OP-A Visit Information Start: 07/17/24 13:36 Freq: Status: Active Protocol: Document 09/03/24 09:08 KW (Rec: 09/03/24 09:12 KW Laptop) Out-Patient Physical Therapy Visit Information Visit Information Visit Type Treatment Note Visit Note overall feeling better, improved shoulder pain f.u with PCP next week Visit Start Time 09:00 Visit Stop Time 09:45 Visit Number 5 Number of SUPERVISORY FORESTER Visits 1 PT-OP-B Current Condition Start: 07/17/24 13:36 Freq: Status: Active Protocol: Document 07/17/24 11:40 DCW (Rec: 07/18/24 08:43 DCW [id number]) Current Condition History of Current Condition Onset Date Five month history Current Complaints Right anterior shoulder pain History of Current Condition Pt is a 53 year old female presenting with a five month history of right anterior shoulder pain. Pt reports that she was using her Instapot, and reached across the top, burned her hand with steam, and jerked her arm back quickly, which resulted in an immediate sharp pain in her right shoulder. Pain has been fairly consistent over the past few months, notes no limitations in her ROM, but struggles with doing activities like digging while gardening, or lifting a 50# bag of dog food. Notes she is unable to sleep on her right side, which is her typical sleeping position. Has not been able to go to the gym due to pain. Treatment Goals Patient/Caregiver Goals Return to preferred activities like gym and gardening without right shoulder pain PT-OP-C Subjective Start: 07/17/24 13:36 Freq: Status: Active Protocol: Document 09/03/24 09:08 KW (Rec: 09/03/24 09:12 KW Laptop) OP-PT Subjective Patient Comments Patient Comments allergies are bad, didn't sleep well. hasn't been writing lately PT-OP-F Manual Assessment Start: 07/17/24 13:36 Freq: Status: Active Protocol: Document 07/17/24 11:40 DCW (Rec: 07/18/24 08:43 DCW [id number]) Manual Assessments Soft Tissue Assessment Soft Tissue Mobility Assessment Tenderness to palpation 3/4: wincing and withdraw along right bicipital groove. Tenderness to palpation 2/4: Pain with wincing at right infraspinatus muscle belly Joint Mobility Assessment Joint Mobility Assessment No limitations of joint or capsular mobility of right shoulder PT-OP-K Range of Motion Start: 07/17/24 13:36 Freq: Status: Active Protocol: Document 07/17/24 11:40 DCW (Rec: 07/18/24 08:43 DCW [id number]) Shoulder Goniometric Range of Motion Shoulder Right Active Shoulder ROM WFL Yes Testing Position Sitting Flexion 180 Abduction 180 External Rotation at 0 degrees Abduction 65 Internal Rotation Behind Back (text) T10 Left Active Shoulder ROM WFL Yes Testing Position Sitting Flexion 180 Abduction 180 External Rotation at 0 degrees Abduction 70 Internal Rotation Behind Back (text) T6 PT-OP-L Special Tests Start: 07/17/24 13:36 Freq: Status: Active Protocol: Document 07/17/24 11:40 DCW (Rec: 07/18/24 08:43 DCW [id number]) Special Tests Shoulder Special Tests Yergason's Biceps Test Results Strongly positive right Sulcus Test Results Negative Speed's Biceps Test Results Strongly positive right Passive ER Rotator Cuff Test Results Negative Painful Arc Test Results Negative [place] Josué Impingement Test Results Negative Grind Labrum Test Results Negative Drop Arm Rotator Cuff Test Results Negative Clunk Test Test Results Negative Belly Press Test Results Mild R pain Apprehension Test Test Results Negative AC Joint Compression Test Results Negative PT-OP-M Strength Start: 07/17/24 13:36 Freq: Status: Active Protocol: Document 07/17/24 11:40 DCW (Rec: 07/18/24 08:43 DCW [id number]) Shoulder Strength Shoulder Manual Muscle Testing Right Flexion 5 Normal Abduction (C5) 5 Normal Adduction 5 Normal External Rotation 5 Normal Internal Rotation 5 Normal Comments Pain with resisted ER Left Flexion 5 Normal Abduction (C5) 5 Normal Adduction 5 Normal External Rotation 5 Normal Internal Rotation 5 Normal PT-OP-Q Treatments Start: 07/17/24 13:36 Freq: Status: Active Protocol: Document 09/03/24 09:08 KW (Rec: 09/03/24 09:12 KW Laptop) Cardio Equipment Upper Body Ergometer (UBE) Duration (Minutes) 4 RPM 120 Seat Position 10 Height 2 Other forward/backward alternated 30 seconds Therapeutic Exercises Standing Exercises Curls Standing Exercise Name Reverse Curls (bicep curl in pronation) Side bilateral Resistance 2# DB Reps/Minutes 2x10 Shoulder Abduction Standing Exercise Name Shoulder Abduction Side bilateral Resistance Lv 4>3 anchored under foot Reps/Minutes 2x10 Comments Pain-free ROM, irritation with Lv 4, improved Lv 3, cues elbow straight Shoulder Flexion Standing Exercise Name Shoulder Flexion Side bilateral Resistance Lv 4>3 anchored under foot Reps/Minutes 2x10 Comments Pain-free ROM, irritation with Lv 4, improved Lv 3, cues elbow straight Rows Standing Exercise Name Rows Side bilateral Resistance Lv 2>3 [place] Reps/Minutes x10 Comments cued posture, scap retraction/ depression awareness range External Rotation Standing Exercise Name Shoulder ER Side bilateral Resistance Lv 4>3 [place] Reps/Minutes x10 Comments cued rhomboid fac con/slower ecc Manual Therapy Treatment Soft Tissue Mobilization L shoulder Body Location prox bicep, anterior deltoid, Prox pec, supra/infraspinatus, teres minor Mobilization Type Myofascial Release,Rolling Intensity/Depth Superficial Body Position Hooklying Comments gentle STMs Joint Mobilizations L shld Joint GH jt Direction posterior, inferior Grade II Body Position Hooklying Comments general cervical traction, upper rib mobs, AC/SC joint mobs R Scap mobs in sidelying PT-OP-T Assessment and Plan Start: 07/17/24 13:36 Freq: Status: Active Protocol: Document 09/03/24 09:08 KW (Rec: 09/03/24 09:12 KW Laptop) Physical Therapy Plan Frequency and Duration Frequency of Treatment 2x/Week Plan of Care Start Date 07/17/24 Plan of Care End Date 09/16/24 Therapeutic Interventions Therapeutic Interventions Home Exercise Program,Joint Mobilizations,Manual Therapy, Neuromuscular Re-education, Patient/Caregiver Education, Self-Care/Home Management,Soft Tissue Mobilization,Taping, Therapeutic Activities, Therapeutic Exercises Modalities Cold Pack/Ice Massage,Electric Stimulation,Hot Packs, Ultrasound Next Visit Focus/Plan Next Note Type Treatment Note Next Visit Plan finalize HEP standing, resistant to layign down HEP. Continue manual next to support mobility. LOTS of cues for ribcage alignment over pelvis, watch knee hyperextension, anterior tilt of pelvis POC: Pain control, shoulder strengthening
--- NOTE | 2024-09-03 13:46 | PT.OTN ---
Current Diagnoses Pain in right shoulder (09/03/24) Bicipital tendinitis, right shoulder (09/03/24) Physical Therapy Treatment Note PT-OP-A Visit Information Start: 07/17/24 13:36 Freq: Status: Active Protocol: Document 09/03/24 09:08 KW (Rec: 09/03/24 09:12 KW Laptop) Out-Patient Physical Therapy Visit Information Visit Information Visit Type Treatment Note Visit Note overall feeling better, improved shoulder pain f.u with PCP next week Visit Start Time 09:00 Visit Stop Time 09:45 Visit Number 5 Number of SEROLOGIST Visits 1 PT-OP-B Current Condition Start: 07/17/24 13:36 Freq: Status: Active Protocol: Document 07/17/24 11:40 DCW (Rec: 07/18/24 08:43 DCW [id number]) Current Condition History of Current Condition Onset Date Five month history Current Complaints Right anterior shoulder pain History of Current Condition Pt is a 53 year old female presenting with a five month history of right anterior shoulder pain. Pt reports that she was using her Instapot, and reached across the top, burned her hand with steam, and jerked her arm back quickly, which resulted in an immediate sharp pain in her right shoulder. Pain has been fairly consistent over the past few months, notes no limitations in her ROM, but struggles with doing activities like digging while gardening, or lifting a 50# bag of dog food. Notes she is unable to sleep on her right side, which is her typical sleeping position. Has not been able to go to the gym due to pain. Treatment Goals Patient/Caregiver Goals Return to preferred activities like gym and gardening without right shoulder pain PT-OP-C Subjective Start: 07/17/24 13:36 Freq: Status: Active Protocol: Document 09/03/24 09:08 KW (Rec: 09/03/24 09:12 KW Laptop) OP-PT Subjective Patient Comments Patient Comments allergies are bad, didn't sleep well. hasn't been writing lately PT-OP-F Manual Assessment Start: 07/17/24 13:36 Freq: Status: Active Protocol: Document 07/17/24 11:40 DCW (Rec: 07/18/24 08:43 DCW [id number]) Manual Assessments Soft Tissue Assessment Soft Tissue Mobility Assessment Tenderness to palpation 3/4: wincing and withdraw along right bicipital groove. Tenderness to palpation 2/4: Pain with wincing at right infraspinatus muscle belly Joint Mobility Assessment Joint Mobility Assessment No limitations of joint or capsular mobility of right shoulder PT-OP-K Range of Motion Start: 07/17/24 13:36 Freq: Status: Active Protocol: Document 07/17/24 11:40 DCW (Rec: 07/18/24 08:43 DCW [id number]) Shoulder Goniometric Range of Motion Shoulder Right Active Shoulder ROM WFL Yes Testing Position Sitting Flexion 180 Abduction 180 External Rotation at 0 degrees Abduction 65 Internal Rotation Behind Back (text) T10 Left Active Shoulder ROM WFL Yes Testing Position Sitting Flexion 180 Abduction 180 External Rotation at 0 degrees Abduction 70 Internal Rotation Behind Back (text) T6 PT-OP-L Special Tests Start: 07/17/24 13:36 Freq: Status: Active Protocol: Document 07/17/24 11:40 DCW (Rec: 07/18/24 08:43 DCW [id number]) Special Tests Shoulder Special Tests Yergason's Biceps Test Results Strongly positive right Sulcus Test Results Negative Speed's Biceps Test Results Strongly positive right Passive ER Rotator Cuff Test Results Negative Painful Arc Test Results Negative [place] Josué Impingement Test Results Negative Grind Labrum Test Results Negative Drop Arm Rotator Cuff Test Results Negative Clunk Test Test Results Negative Belly Press Test Results Mild R pain Apprehension Test Test Results Negative AC Joint Compression Test Results Negative PT-OP-M Strength Start: 07/17/24 13:36 Freq: Status: Active Protocol: Document 07/17/24 11:40 DCW (Rec: 07/18/24 08:43 DCW [id number]) Shoulder Strength Shoulder Manual Muscle Testing Right Flexion 5 Normal Abduction (C5) 5 Normal Adduction 5 Normal External Rotation 5 Normal Internal Rotation 5 Normal Comments Pain with resisted ER Left Flexion 5 Normal Abduction (C5) 5 Normal Adduction 5 Normal External Rotation 5 Normal Internal Rotation 5 Normal PT-OP-Q Treatments Start: 07/17/24 13:36 Freq: Status: Active Protocol: Document 09/03/24 09:08 KW (Rec: 09/03/24 09:12 KW Laptop) Cardio Equipment Upper Body Ergometer (UBE) Duration (Minutes) 4 RPM 120 Seat Position 10 Height 2 Other forward/backward alternated 30 seconds Therapeutic Exercises Standing Exercises Curls Standing Exercise Name Reverse Curls (bicep curl in pronation) Side bilateral Resistance 2# DB Reps/Minutes 2x10 Shoulder Abduction Standing Exercise Name Shoulder Abduction Side bilateral Resistance Lv 4>3 anchored under foot Reps/Minutes 2x10 Comments Pain-free ROM, irritation with Lv 4, improved Lv 3, cues elbow straight Shoulder Flexion Standing Exercise Name Shoulder Flexion Side bilateral Resistance Lv 4>3 anchored under foot Reps/Minutes 2x10 Comments Pain-free ROM, irritation with Lv 4, improved Lv 3, cues elbow straight Rows Standing Exercise Name Rows Side bilateral Resistance Lv 2>3 [place] Reps/Minutes x10 Comments cued posture, scap retraction/ depression awareness range External Rotation Standing Exercise Name Shoulder ER Side bilateral Resistance Lv 4>3 [place] Reps/Minutes x10 Comments cued rhomboid fac con/slower ecc Manual Therapy Treatment Soft Tissue Mobilization L shoulder Body Location prox bicep, anterior deltoid, Prox pec, supra/infraspinatus, teres minor Mobilization Type Myofascial Release,Rolling Intensity/Depth Superficial Body Position Hooklying Comments gentle STMs Joint Mobilizations L shld Joint GH jt Direction posterior, inferior Grade II Body Position Hooklying Comments general cervical traction, upper rib mobs, AC/SC joint mobs R Scap mobs in sidelying PT-OP-T Assessment and Plan Start: 07/17/24 13:36 Freq: Status: Active Protocol: Document 09/03/24 09:08 KW (Rec: 09/03/24 09:12 KW Laptop) Physical Therapy Plan Frequency and Duration Frequency of Treatment 2x/Week Plan of Care Start Date 07/17/24 Plan of Care End Date 09/16/24 Therapeutic Interventions Therapeutic Interventions Home Exercise Program,Joint Mobilizations,Manual Therapy, Neuromuscular Re-education, Patient/Caregiver Education, Self-Care/Home Management,Soft Tissue Mobilization,Taping, Therapeutic Activities, Therapeutic Exercises Modalities Cold Pack/Ice Massage,Electric Stimulation,Hot Packs, Ultrasound Next Visit Focus/Plan Next Note Type Treatment Note Next Visit Plan finalize HEP standing, resistant to layign down HEP. Continue manual next to support mobility. LOTS of cues for ribcage alignment over pelvis, watch knee hyperextension, anterior tilt of pelvis POC: Pain control, shoulder strengthening
--- NOTE | 2024-09-09 14:27 | PT-OP ANOTE ---
Pt cancelled >24 hrs advance cancel tomorrow's visit due to being sick.
--- NOTE | 2024-10-02 09:05 | PT.OTN ---
Current Diagnoses Pain in right shoulder (10/02/24) Bicipital tendinitis, right shoulder (10/02/24) Physical Therapy Treatment Note PT-OP-A Visit Information Start: 07/17/24 13:36 Freq: Status: Active Protocol: Document 10/02/24 08:49 KW (Rec: 10/02/24 09:05 KW Laptop) Out-Patient Physical Therapy Visit Information Visit Information Visit Type Discharge Summary Visit Start Time 08:15 Visit Stop Time 08:55 Visit Number 6 PT-OP-B Current Condition Start: 07/17/24 13:36 Freq: Status: Active Protocol: Document 07/17/24 11:40 DCW (Rec: 07/18/24 08:43 DCW [id number]) Current Condition History of Current Condition Onset Date Five month history Current Complaints Right anterior shoulder pain History of Current Pt is a 53 year old female presenting with a five month Condition history of right anterior shoulder pain. Pt reports that she was using her Instapot, and reached across the top, burned her hand with steam, and jerked her arm back quickly, which resulted in an immediate sharp pain in her right shoulder. Pain has been fairly consistent over the past few months, notes no limitations in her ROM, but struggles with doing activities like digging while gardening, or lifting a 50# bag of dog food. Notes she is unable to sleep on her right side, which is her typical sleeping position. Has not been able to go to the gym due to pain. Treatment Goals Patient/Caregiver Return to preferred activities like gym and gardening Goals without right shoulder pain PT-OP-C Subjective Start: 07/17/24 13:36 Freq: Status: Active Protocol: Document 10/02/24 08:49 KW (Rec: 10/02/24 09:05 KW Laptop) OP-PT Subjective Patient Comments Patient Comments had walking pneumonia so missed a month of PT. Wants to take a break from PT, go see an ortho MD for further work up. Strength and ROM have improved but pain continues. Wants to make sure there isn't something missing Patient Reported Same Progress Patient Questionnaires Quick Dash- Upper Extremity Quick Dash UE Score 28 Quick Dash UE 20 to 39% Impaired (Score 20-39) Impairment OP-PT Pain Assessment Location R shoulder Pain Location R shoulder Details Intensity 5 PT-OP-F Manual Assessment Start: 07/17/24 13:36 Freq: Status: Active Protocol: Document 10/02/24 08:49 KW (Rec: 10/02/24 09:05 KW Laptop) Manual Assessments Soft Tissue Assessment Soft Tissue Mobility Tenderness to palpation 3/4: wincing and withdraw along Assessment right bicipital groove. Tenderness to palpation 2/4: Pain with wincing at right infraspinatus muscle belly- no pain with palpation today PT-OP-K Range of Motion Start: 07/17/24 13:36 Freq: Status: Active Protocol: Document 07/17/24 11:40 DCW (Rec: 07/18/24 08:43 DCW [id number]) Shoulder Goniometric Range of Motion Shoulder Right Active Shoulder ROM WFL Yes Testing Position Sitting Flexion 180 Abduction 180 External Rotation at 65 0 degrees Abduction Internal Rotation T10 Behind Back (text) Left Active Shoulder ROM WFL Yes Testing Position Sitting Flexion 180 Abduction 180 External Rotation at 70 0 degrees Abduction Internal Rotation T6 Behind Back (text) PT-OP-L Special Tests Start: 07/17/24 13:36 Freq: Status: Active Protocol: Document 10/02/24 08:49 KW (Rec: 10/02/24 09:05 KW Laptop) Special Tests Cervical Spine Special Tests quadrant Test Results Negative Shoulder Special Tests Yergason's Biceps Test Results positive right- improved Sulcus Test Results Negative Speed's Biceps Test Results Strongly positive right- improved Passive ER Rotator Cuff Test Results Negative Painful Arc Test Results Negative [place] Josué Impingement Test Results Negative Grind Labrum Test Results Negative Drop Arm Rotator Cuff Test Results Negative Clunk Test Test Results Negative Belly Press Test Results Negative Apprehension Test Test Results Negative AC Joint Compression Test Results Negative PT-OP-M Strength Start: 07/17/24 13:36 Freq: Status: Active Protocol: Document 07/17/24 11:40 DCW (Rec: 07/18/24 08:43 DCW [id number]) Shoulder Strength Shoulder Manual Muscle Testing Right Flexion 5 Normal Abduction (C5) 5 Normal Adduction 5 Normal External Rotation 5 Normal Internal Rotation 5 Normal Comments Pain with resisted ER Left Flexion 5 Normal Abduction (C5) 5 Normal Adduction 5 Normal External Rotation 5 Normal Internal Rotation 5 Normal PT-OP-Q Treatments Start: 07/17/24 13:36 Freq: Status: Active Protocol: Document 10/02/24 08:49 KW (Rec: 10/02/24 09:05 KW Laptop) Cardio Equipment Upper Body Ergometer (UBE) Duration (Minutes) 4 RPM 120 Seat Position 10 Height 2 Other forward/backward alternated 30 seconds Therapeutic Exercises Standing Exercises Curls Standing Exercise Reverse Curls (bicep curl in pronation) Name Side bilateral Resistance 2# DB Reps/Minutes 2x10 Shoulder Abduction Standing Exercise Shoulder Abduction Name Side bilateral Resistance Lv 4>3 anchored under foot Reps/Minutes 2x10 Comments Pain-free ROM, irritation with Lv 4, improved Lv 3, cues elbow straight Shoulder Flexion Standing Exercise Shoulder Flexion Name Side bilateral Resistance Lv 4>3 anchored under foot Reps/Minutes 2x10 Comments Pain-free ROM, irritation with Lv 4, improved Lv 3, cues elbow straight Rows Standing Exercise Rows Name Side bilateral Resistance Lv 2>3 [place] Reps/Minutes x10 Comments cued posture, scap retraction/depression awareness range External Rotation Standing Exercise Shoulder ER Name Side bilateral Resistance Lv 4>3 [place] Reps/Minutes x10 Comments cued rhomboid fac con/slower ecc Manual Therapy Treatment Soft Tissue Mobilization L shoulder Body Location prox bicep, anterior deltoid, Prox pec, supra/ infraspinatus, teres minor Mobilization Type Myofascial Release,Rolling Intensity/Depth Superficial Body Position Hooklying Comments gentle STMs Joint Mobilizations L shld Joint GH jt Direction posterior, inferior Grade II Body Position Hooklying Comments general cervical traction, upper rib mobs, AC/SC joint mobs R Scap mobs in sidelying PT-OP-T Assessment and Plan Start: 07/17/24 13:36 Freq: Status: Active Protocol: Document 10/02/24 08:49 KW (Rec: 10/02/24 09:05 KW Laptop) Physical Therapy Plan Therapeutic Interventions Therapeutic Home Exercise Program,Joint Mobilizations,Manual Interventions Therapy,Neuromuscular Re-education,Patient/Caregiver Education,Self-Care/Home Management,Soft Tissue Mobilization,Taping,Therapeutic Activities,Therapeutic Exercises Modalities Cold Pack/Ice Massage,Electric Stimulation,Hot Packs, Ultrasound Discharge Physical Therapy Discharge Reasons Plateau in Progress Discharge Comments recommend further w/u as pain continues despite improved ROM, strength and scapular stability Next Visit Focus/Plan Next Note Type Discharge Summary Next Visit Plan patient with restored ROM in shoulder, improved strength and special tests. She continues with pain that has her concerned. Recommended she reach out to her MD for possible referral to ortho MD for further w/ u. Recommend cont HEP and ok to return to gym, start light weights.
== END 2024-10-03 13:15 | disposition home or self-care (01) ==
LOC: PHYS 08:15
PROVIDERS: Family Provider Student in an Organized Health Care Education/Training Program; PCP Student in an Organized Health Care Education/Training Program; Referring Provider Student in an Organized Health Care Education/Training Program; Visit Provider Student in an Organized Health Care Education/Training Program
DX: M25.511 Pain in right shoulder (principal); M75.21 Bicipital tendinitis, right shoulder
CPT/HCPCS: 97110; 97140; 97163; 97535